=== PATIENT | male | born 1980 | race Two or more races ===

== ENCOUNTER → 2021-03-05 | Emergency (ER) | payer OTHER ==
[~2021-03-05] VITALS: Ht 172.7 cm; Wt 79.4 kg
[~2021-03-05] MED LIST: GILTUSS LIQUID237 M1 PO; HUMALOG100 U/ML; LANTUS100 U/ML; ORASEP SPRAY30 ML MM; ZITHROMAX500 MG PO; ZYRTEC10 MG PO
== END | disposition home or self-care (01) ==
LOC: ER 22:26
DX: J06.9 Acute upper respiratory infection, unspecified (principal); Z03.818 Encounter for observation for suspected exposure to other biological agents ruled out

== ENCOUNTER → 2022-08-12 | Emergency (ER) | payer OTHER ==
[~2022-08-12] VITALS: Ht 172.7 cm; Wt 79.4 kg
[~2022-08-12] MED LIST changes: +TOUJEO SOL300 UNIT/1 SQ
== END | disposition left against medical advice (07) ==
LOC: ER 08:55
DX: Z53.21 Procedure and treatment not carried out due to patient leaving prior to being seen by health care provider (principal)